=== PATIENT | female | born 1935 | race Caucasian/White ===

== ENCOUNTER 2017-01-14 11:37 | Outpatient (CLI) | payer OTHER ==
--- NOTE | 2017-01-14 15:03 | DIAGNOSTIC IMAGING REPORT ---
PROCEDURE: XR CHEST 2 VIEW INDICATION: SHORTNESS OF BREATH TECHNIQUE: PA and lateral views. COMPARISON: Compared to chest x-ray on 05/30/2016, 05/13/2016 and 03/25/[address] thorax (08/24/2012). FINDINGS: There is a patchy infiltrate in the lingula. There has been resolution of the infiltrates in the right mid lung field and the right base. Heart and mediastinum are normal. Thorax is normal. IMPRESSION: 1. Patchy lingular infiltrate.
== END 2017-01-14 23:00 ==
LOC: XR SRH 11:37
DX: R91.8 Other nonspecific abnormal finding of lung field (principal)
CPT/HCPCS: 90074; 90100; 90616; 91320; 91556; 95059

== ENCOUNTER 2017-02-06 16:38 | Outpatient (CLI) | payer OTHER ==
--- NOTE | 2017-02-06 17:40 | DIAGNOSTIC IMAGING REPORT ---
PROCEDURE: CT ABD/PELVIS WITH CONTRAST INDICATION: Left abdominal pain. Constipation. History of appendectomy, hysterectomy, diverticulitis, hepatic cysts. TECHNIQUE: 118 ml of Isovue 300 were injected intravenously and axial images were obtained of the entire abdomen and pelvis with sagittal and coronal reformations. COMPARISON: Comparison made to CT abdomen pelvis on 06/04/2012. FINDINGS: ABDOMEN: Gallbladder is normal. Multiple hepatic cysts are stable. Spleen, pancreas, kidneys, and aorta are normal. Bowel pattern is normal. Mild dextroscoliosis and marked degenerative change of the lumbar spine. PELVIS: Status post hysterectomy. Pelvic structures are otherwise normal. No evidence of free fluid. IMPRESSION: 1. Mild dextroscoliosis and marked degenerative changes of the lumbar spine. 2. Status post hysterectomy and reported appendectomy. 3. Otherwise negative CT abdomen and pelvis. No evidence of acute process. 4. Findings discussed with the patient and called to ASHLEE Uriarte. All CT scans at this facility use dose modulation, iterative reconstruction, and/or weight-based dosing when appropriate to reduce radiation dose to as low as reasonably achievable.
== END 2017-02-06 23:00 | disposition home or self-care (01) ==
LOC: CT SRH 16:38
DX: R10.32 Left lower quadrant pain (principal); Z90.710 Acquired absence of both cervix and uterus; Z90.89 Acquired absence of other organs; M51.36 Other intervertebral disc degeneration, lumbar region